=== PATIENT | female | born 1940 | race Caucasian/White ===

== ENCOUNTER 2018-02-26 22:41 | Emergency (ER) | payer BC, MEDICARE ==
[2018-02-26 23:39] LABS: #Basophils 0.1 thou/uL (0.0-0.2); #Eosinphils 0.2 thou/uL (0.0-0.7); #Lymphocytes 1.7 thou/uL (1.20-3.40); #Monocytes 0.7 thou/uL (0.11-0.59); #Neutrophils 3.9 thou/uL (1.40-6.50); %Basophils 1.2 % (0.0-1.0); %Eosinophils 3.7 % (0.0-10.0); %Lymphocytes 25.9 % (21.0-51.0); %Monocytes 10.9 % (0.0-10.0); %Neutrophils 58.3 % (42.0-75.0); Hemoglobin 13.2 g/dL (12.0-16.0); Mean Corpuscular HGB CONC 32.7 g/dL (32.0-36.0); Mean Corpuscular Hemoglobin 31.3 pg (27.0-31.0); Mean Corpuscular Volume 95.5 fL (78.0-98.0); Mean Platelet Volume 7.6 fL (7.4-10.4); Platelet Count 235 thou/uL (130-400); Red Blood Cell (RBC) Count 4.21 mill/uL (4.20-5.40); White Blood Cell (WBC) Count 6.7 thou/uL (4.8-10.8)
[2018-02-26 23:51] LABS: ALT (SGPT) Less than 7 U/L (8-55); AST (SGOT) 19 U/L (5-34); Acetaminophen Less than 6.0 mcg/mL (10.0-30.0); Albumin 4.2 g/dL (3.4-4.8); Alcohol Less than 10 mg/dL (Less than 10); Alkaline Phosphatase 49 U/L (40-150); Anion Gap 13 mmol/L (10-20); BUN (Urea Nitrogen) 19 mg/dL (9.8-20.1); Bilirubin, Total 0.3 mg/dL (0.2-1.2); CK (CPK) 55 U/L (29-168); Calc. Creatinine Clearance 0 mL/min (70-130); Calcium 9.2 mg/dL (7.8-10.44); Carbon Dioxide 25 mmol/L (23-31); Chloride 105 mmol/L (98-107); Estimated GFR-MDRD Greater than 90; Globulin 2.5 g/dL (2.4-3.5); Glucose 107 mg/dL (83-110); Potassium 4.3 mmol/L (3.5-5.1); Protein, Total 6.7 g/dL (6.0-8.3); Salicylate Less than 8.0 mg/dL (15.0-30.0); Sodium 139 mmol/L (136-145)
[2018-02-26 23:53] LABS: Troponin I Less than 0.010 ng/mL (< 0.028)
--- NOTE | 2018-02-27 00:06 | CT ---
CT BRAIN WITHOUT CONTRAST: HISTORY: The patient was found on the floor. Lethargy. TECHNIQUE: Noncontrast enhanced CT images of the brain obtained. FINDINGS: No evidence of acute intracranial masses, hemorrhages, strokes, or contusions seen. IMPRESSION: Normal CT brain. POS: [facility]
[2018-02-27 02:33] LABS: Bilirubin Negative (Negative); Blood, Urine Negative (Negative); Glucose, Urine (Dipstick) 100 mg/dL (Negative); Leukocyte Negative (Negative); Nitrite Negative (Negative); Protein, Urine (Dipstick) Negative (Neg-Trace); pH, Urine 6.5 (5.0-9.0)
[2018-02-27 02:44] LABS: Amphetamine Detected (NotDetected); Cocaine Metabolite Screen Not Detected (NotDetected); Medtox Reader # READER 4; Methamphetamine Not Detected (NotDetected); Opiate Screen Not Detected (NotDetected); Phencyclidine (PCP) Not Detected (NotDetected); THC/Cannabinoid Screen Not Detected (NotDetected)
[2018-02-27 02:45] LABS: Barbiturates Screen Not Detected (NotDetected); Benzodiazepine Screen Not Detected (NotDetected); Medtox Control Line Valid? VALID (VALID); Methadone Not Detected (NotDetected); Oxycodone Screen Not Detected (NotDetected); Tricyclic Screen Detected (NotDetected)
[2018-02-27 02:47] LABS: Clarity Clear (Clear)
--- NOTE | 2018-02-27 08:59 | RAD ---
PORTABLE AP CHEST X-RAY: 02/27/2018 HISTORY: Fall. Patient found on floor. Favoring right arm. The patient is lethargic. COMPARISON: 08/17/2016 FINDINGS: Bilateral [place] rods and multiple pedicular screws are seen transfixing the thoracic, as well as the limited visualized upper lumbar spine, stable from prior study. A linear area of scarring is aga in seen at the left mid lung zone. The patient is rotated, which exaggerates the cardiac silhouette and bronchovascular markings, but the lungs are otherwise clear. There is osteopenia. No other inte rval change is noted. IMPRESSION: 1. No acute cardiopulmonary process. 2. Stable scarring, left mid lung zone. POS: [facility]
--- NOTE | 2018-02-27 12:01 | CT ---
PRELIMINARY REPORT/[facility]/EMERGENCY AFTER HOURS PROCEDURE: EXAM: CT Cervical Spine Without Intravenous Contrast CLINICAL HISTORY: 78 years old, female; Injury or trauma; Fall; Initial encounter; Abrasion; Patient HX: Fall. TECHNIQUE: Axial computed tomography images of the cervical spine without intravenous contrast. COMPARISON: No relevant prior studies available. FINDINGS: Vertebrae: No acute fracture. Discs/spinal canal/neural foramina: Mild multilevel degenerative disc disease, manifest by disc space narrowing minimal osteophyte formation. Mild multilevel bilateral facet and uncovertebral arthropathy . Degenerative changes of the atlantoaxial articulation. Right C3-4, right C4-5, and bilateral C5-6 shayy ral foraminal narrowing. Soft tissues: Normal. Vasculature: Atherosclerotic vascular calcifications. Trachea: Evidence of tracheomalacia. Lung apices: Normal as visualized. IMPRESSION: 1. No acute findings. 2. Non-acute findings are described above. Thank you for allowing us to participate in the care of your patient. Dictated and Authenticated by: Manuelito Alexander MD 02/27/2018 12:56 AM Central Time ([place] & [place]) EMERGENT AFTER HOURS CT CERVICAL SPINE PERFORMED WITHOUT CONTRAST ENHANCEMENT: HISTORY: The patient is status post fall with neck pain. FINDINGS: The vertebral bodies are normal in height. There is degenerative disk narrowing at C5-C6 and C6-C7. Somewhat prominent posterior osteophytic change is seen at C5-C6. There are marked degenerative fac et changes along the course of the cervical spine. There are postoperative changes of the thoracic s pine. This artifact considerably degrades detail in the lower cervical spine/upper thoracic region. At the C3-C4 level, there is some right-sided foraminal narrowing, related to facet and uncovertebra l changes, and also at C4-C5. At C5-C6, there is mild canal stenosis and bilateral foraminal narrowi ng. There is no CT evidence for fracture. IMPRESSION: No CT evidence of fracture of the cervical spine. This report is in agreement with the temporary report issued by [facility]. Of incidental note are severe tracheomalacia changes of the visualized lower portion of the trachea w ith marked narrowing to the AP dimension of the trachea. POS: [facility]
== END 2018-02-27 03:35 | disposition home or self-care (01) ==
LOC: ERS 22:41
DX: R53.83 Other fatigue (principal); E78.5 Hyperlipidemia, unspecified; I10 Essential (primary) hypertension; F03.90 Unspecified dementia, unspecified severity, without behavioral disturbance, psychotic disturbance, mood disturbance, and anxiety; G20 Parkinson's disease; F32.9 Major depressive disorder, single episode, unspecified; Z79.899 Other long term (current) drug therapy; W19.XXXA Unspecified fall, initial encounter
CPT/HCPCS: 51701; 70450; 71045; 72125; 80053; 80306; 80307; 81003; 82553; 83880; 84443; 84484; 85025; 93005; A4353

== ENCOUNTER 2018-06-21 17:23 | Emergency (ER) | payer MEDICARE, BC ==
[2018-06-21] MEDS ORDERED: Adacel (T-DAP) 0.5 ML SYRINGE ONE (19:16)
--- NOTE | 2018-06-21 19:55 | CT ---
CT BRAIN 06/21/18 PROVIDED CLINICAL HISTORY: Head injury. FINDINGS: Comparison 02/26/18. The ventricular system appears normal in size and morphology. There is no evidence for intracranial h emorrhage or mass effect. The extracranial soft tissues and osseous structures demonstrate no acute a bnormality. IMPRESSION: No evidence for intracranial hemorrhage or mass effect. POS: [facility]
== END 2018-06-21 19:30 | disposition home or self-care (01) ==
LOC: ERS 17:23
DX: S01.01XA Laceration without foreign body of scalp, initial encounter (principal); E78.5 Hyperlipidemia, unspecified; F03.90 Unspecified dementia, unspecified severity, without behavioral disturbance, psychotic disturbance, mood disturbance, and anxiety; I10 Essential (primary) hypertension; G20 Parkinson's disease; M19.90 Unspecified osteoarthritis, unspecified site; F32.9 Major depressive disorder, single episode, unspecified; Z79.899 Other long term (current) drug therapy; W05.0XXA Fall from non-moving wheelchair, initial encounter
CPT/HCPCS: 12001; 70450; 90715

== ENCOUNTER 2018-10-23 14:29 | Outpatient (CLI) | payer MEDICARE, BC ==
--- NOTE | 2018-10-23 15:40 | RAD ---
CHEST PA AND LATERAL: HISTORY: Chest congestion. History of frequent pneumonia. COMPARISON: 08/17/2016 FINDINGS: Extensive rods and screws stabilize the thoracic spine. Linear parenchymal changes are noted in the left mid lung zone with some blunting at the left costophrenic angle, stable. No confluent pneumonia or overt edema. IMPRESSION: Stable chronic lung changes, particularly in the left chest. No pneumonia or other acute process. POS: [facility]
== END 2018-10-23 14:30 | disposition home or self-care (01) ==
LOC: BICRAD 14:29
PROVIDERS: ATTEND Family Medicine
DX: R09.89 Other specified symptoms and signs involving the circulatory and respiratory systems (principal); J98.4 Other disorders of lung
CPT/HCPCS: 36415; 71046; 80053; 84443; 85025

== ENCOUNTER 2018-11-11 21:33 | Emergency (ER) | payer BC, MEDICARE ==
--- NOTE | 2018-11-11 22:58 | RAD ---
EXAM: Single view of the chest HISTORY: Cough COMPARISON: 02/27/2018 FINDINGS: Single view of the chest shows a normal sized cardiomediastinal silhouette. There is no danny dence of consolidation, mass, or pleural effusion. Extensive hardware is seen in the spine. IMPRESSION: No evidence of acute cardiopulmonary disease
[2018-11-11 23:26] LABS: Bilirubin Negative (Negative); Blood, Urine Negative (Negative); Clarity CLEAR (Clear); Glucose, Urine (Dipstick) Negative (Negative); Leukocyte Negative (Negative); Nitrite Negative (Negative); Protein, Urine (Dipstick) Negative (Neg-Trace); Specific Gravity, Urine 1.007 (1.002-1.036); Urobilinogen 0.2 mg/dL (0.2-1.0)
== END 2018-11-11 23:48 ==
LOC: ERS 21:33
DX: R05 Cough (principal); E78.5 Hyperlipidemia, unspecified; F03.90 Unspecified dementia, unspecified severity, without behavioral disturbance, psychotic disturbance, mood disturbance, and anxiety; G20 Parkinson's disease; F32.9 Major depressive disorder, single episode, unspecified; Z87.01 Personal history of pneumonia (recurrent); I10 Essential (primary) hypertension; Z79.899 Other long term (current) drug therapy; Z79.01 Long term (current) use of anticoagulants
CPT/HCPCS: 51701; 71045; 81003; 87086; A4353

== ENCOUNTER 2019-05-06 00:53 | Emergency (ER) | payer BC, MEDICARE ==
[2019-05-06 02:01] LABS: ALT (SGPT) 10 U/L (8-55); AST (SGOT) 40 U/L (5-34); Albumin 3.7 g/dL (3.4-4.8); Alkaline Phosphatase 48 U/L (40-110); Anion Gap 10 mmol/L (10-20); BUN (Urea Nitrogen) 24 mg/dL (9.8-20.1); Bilirubin, Total 0.5 mg/dL (0.2-1.2); Calc. Creatinine Clearance 0 mL/min (70-130); Calcium 8.3 mg/dL (7.8-10.44); Carbon Dioxide 26 mmol/L (23-31); Chloride 109 mmol/L (98-107); Estimated GFR-MDRD Greater than 90; Glucose 92 mg/dL (83-110); Magnesium 1.9 mg/dL (1.6-2.6); Protein, Total 5.7 g/dL (6.0-8.3); Sodium 141 mmol/L (136-145)
[2019-05-06 02:59] LABS: Bacteria/HPF None Seen HPF (None Seen); Bilirubin Negative (Negative); Blood, Urine Negative (Negative); Clarity Clear (Clear); Glucose, Urine (Dipstick) Normal (Negative); Leukocyte 25 Leu/uL (Negative); Nitrite Negative (Negative); Protein, Urine (Dipstick) 10 mg/dL (Neg-Trace); RBC/HPF 0-3 HPF (0-3); Squamous Epithelial 0-3 HPF (0-3); Urobilinogen Normal mg/dL (Less than 2)
[2019-05-06 03:22] LABS: #Basophils 0.1 thou/uL (0.0-0.2); #Eosinphils 0.4 thou/uL (0.0-0.7); #Lymphocytes 2.8 thou/uL (1.20-3.40); #Monocytes 0.9 thou/uL (0.11-0.59); #Neutrophils 4.6 thou/uL (1.40-6.50); %Basophils 0.7 % (0.0-1.0); %Eosinophils 4.3 % (0.0-10.0); %Lymphocytes 32.1 % (21.0-51.0); %Monocytes 10.3 % (0.0-10.0); %Neutrophils 52.7 % (42.0-75.0); Hemoglobin 11.6 g/dL (12.0-16.0); Mean Corpuscular HGB CONC 33.4 g/dL (32.0-36.0); Mean Corpuscular Hemoglobin 31.5 pg (27.0-31.0); Mean Corpuscular Volume 94.2 fL (78.0-98.0); Mean Platelet Volume 7.1 fL (7.4-10.4); Platelet Count 206 thou/uL (130-400); Red Blood Cell (RBC) Count 3.68 mill/uL (4.20-5.40); White Blood Cell (WBC) Count 8.8 thou/uL (4.8-10.8)
[2019-05-06] MEDS ORDERED: cefTRIAXone\\ROCEPHIN 1 GM VIAL ONE (03:45)
--- NOTE | 2019-05-06 09:18 | RAD ---
RADIOGRAPH CHEST 1 VIEW: DATE: 05/06/19 HISTORY: 79-year-old female with dyspnea. FINDINGS: There are no air space densities, pulmonary edema, pneumothorax, or cardiomegaly. The lateral costop hrenic angles are sharp. There is spinal hardware throughout. IMPRESSION: 1. No acute cardiopulmonary findings. 2. Pedicle screws and vertical interlocking rods throughout the thoracic spine and at least upper erick mbar spine. jn [] POS: [facility]
== END 2019-05-06 04:45 ==
LOC: ERS 00:53
DX: N39.0 Urinary tract infection, site not specified (principal); E86.0 Dehydration; E78.5 Hyperlipidemia, unspecified; I10 Essential (primary) hypertension; F03.90 Unspecified dementia, unspecified severity, without behavioral disturbance, psychotic disturbance, mood disturbance, and anxiety; M17.0 Bilateral primary osteoarthritis of knee; Z79.899 Other long term (current) drug therapy
CPT/HCPCS: 36415; 51701; 71045; 80053; 81003; 81015; 83735; 84484; 85025; 93005; 96374; J0696

== ENCOUNTER 2019-09-07 21:49 | Emergency (ER) | payer MEDICARE, BC ==
--- NOTE | 2019-09-07 22:44 | RAD ---
XR Hip Lt 2-3 View History: Fall. Pain Comparison: None. Findings: Spinal fusion hardware lumbosacral spine with discectomy change and bone graft. Left obtura tor ring appears be intact. There is abnormal marrow stimulation the intertrochanteric portion of the left femur which may be seq uelae of a healed fracture as there is no cortical offset on the lateral radiograph. Severe degenerative disease of the left hip with large subcortical cysts and osteophyte formation. Impression: 1. Findings of an old intertrochanteric fracture left femur as there is no cortical offset on the lat eral radiograph to suggest acuity. This appears healed with abnormal varus angulation. 2. Intact obturator rings without displaced fracture. 3. High-grade degenerative disease of the left hip. 4. If the patient is acutely unable to bear weight, CT may be beneficial to evaluate for nondisplaced fracture.
--- NOTE | 2019-09-07 22:46 | CT ---
CT Brain WO Con History: Fall. Trauma Comparison: CT brain June 2018 Findings: No acute hemorrhage or infarct. No midline shift or mass effect. Age-appropriate volume. No hydrocephalus. Old right lacunar infarct. Paranasal sinuses and mastoids are clear. The calvarium is intact. Small right forehead soft tissue c ontusion. Impression: No acute posttraumatic intracranial sequela.
== END 2019-09-08 00:31 ==
LOC: ERS 21:49
DX: S00.03XA Contusion of scalp, initial encounter (principal); S70.02XA Contusion of left hip, initial encounter; E78.5 Hyperlipidemia, unspecified; I10 Essential (primary) hypertension; F03.90 Unspecified dementia, unspecified severity, without behavioral disturbance, psychotic disturbance, mood disturbance, and anxiety; G20 Parkinson's disease; F32.9 Major depressive disorder, single episode, unspecified; W19.XXXA Unspecified fall, initial encounter
CPT/HCPCS: 70450

== ENCOUNTER 2020-02-29 22:04 | Emergency (ER) | payer MEDICARE, BC ==
--- NOTE | 2020-02-29 22:48 | CT ---
CT Brain WO Con History: Trauma Comparison: CT August 2019 Findings: Mild motion artifact. Moderate chronic microvascular ischemic changes. No acute hemorrhage or territorial infarction. Calvarium is intact. Paranasal sinuses and mastoids are relatively clear. Impression: No acute intracranial abnormality.
== END 2020-02-29 23:32 ==
LOC: ERS 22:04
DX: F03.90 Unspecified dementia, unspecified severity, without behavioral disturbance, psychotic disturbance, mood disturbance, and anxiety (principal); E78.2 Mixed hyperlipidemia; I10 Essential (primary) hypertension; M19.90 Unspecified osteoarthritis, unspecified site; G20 Parkinson's disease; F32.9 Major depressive disorder, single episode, unspecified; Z79.899 Other long term (current) drug therapy; W01.198A Fall on same level from slipping, tripping and stumbling with subsequent striking against other object, initial encounter
CPT/HCPCS: 70450

== ENCOUNTER 2020-05-16 18:37 | Emergency (ER) | payer MEDICARE, BC ==
[2020-05-16] MEDS ORDERED: Boostrix 0.5 ML (Tdap) VIAL ONE (19:20)
--- NOTE | 2020-05-16 19:32 | RAD ---
Exam:Right hand 3 views HISTORY: Pain. Injury. Fall. COMPARISON: None FINDINGS: Diffuse bone demineralization. Chronic changes involving the first carpometacarpal articula tion as well as the articulation of the scaphoid bone and trapezium. No acute fractures with regards to the right hand. There is demineralization involving the distal radius. There are degenerative changes involving the s econd through fifth distal interphalangeal joint spaces. IMPRESSION: Chronic changes. No fracture. If there is pain or point tenderness, immobilization and fo llow-up imaging in 7-10 days.
--- NOTE | 2020-05-16 20:05 | CT ---
EXAM: BRAIN CT WITHOUT IV CONTRAST: 05/16/20 HISTORY: AMS There is minimal motion artifact. No focal mass or midline shift. No intra or extra-axial hemorrhage. IMPRESSION: No significant acute intracranial process. No mass or bleed. Minimal motion artifact. POS: [facility]
--- NOTE | 2020-05-16 20:17 | CT ---
Exam: CT cervical spine without contrast HISTORY: Patient fell out of the wheelchair. COMPARISON: 02/27/2018 FINDINGS: No craniocervical dissociation. Appropriate alignment of the lateral masses of C1 and C2. Intact odon toid process Appropriate alignment of the facets. Redemonstration of multilevel facet arthropathy. There are hypertrophic changes with vacuum joint phe nomenon. Incompletely evaluated posterior element hardware in the upper thoracic spine. Soft tissue neck structures: No mass, lymphadenopathy or hematoma. No prevertebral soft tissue swelli ng. Upper mediastinum and lung apices: Unremarkable Central spinal canal: Neural foramina and central spinal canal are patent. Evaluation is limited by t echnique Vertebral bodies: Cervical spine vertebral body height is maintained. No fracture. IMPRESSION: 1. No fracture.
[2020-05-16] MEDS ORDERED: Bacitracin 1 PK ONE (23:20)
== END 2020-05-17 00:08 ==
LOC: ERS 18:37
DX: S61.411A Laceration without foreign body of right hand, initial encounter (principal); S00.83XA Contusion of other part of head, initial encounter; I10 Essential (primary) hypertension; G20 Parkinson's disease; F02.80 Dementia in other diseases classified elsewhere, unspecified severity, without behavioral disturbance, psychotic disturbance, mood disturbance, and anxiety; E78.2 Mixed hyperlipidemia; M17.0 Bilateral primary osteoarthritis of knee; Z87.01 Personal history of pneumonia (recurrent); Z79.899 Other long term (current) drug therapy; W05.0XXA Fall from non-moving wheelchair, initial encounter
CPT/HCPCS: 12005; 70450; 72125; 90471; 90715

== ENCOUNTER 2020-06-01 20:53 | Emergency (ER) | payer MEDICARE, BC ==
--- NOTE | 2020-06-01 22:09 | RAD ---
EXAM: Single view of the chest HISTORY: Fall with chest trauma COMPARISON: 05/06/2019 FINDINGS: Single view of the chest shows a normal sized cardiomediastinal silhouette. There is no danny dence of consolidation, mass, or pleural effusion. Extensive hardware is seen in the spine. IMPRESSION: No evidence of acute cardiopulmonary disease
--- NOTE | 2020-06-01 22:11 | CT ---
EXAM: CT of the cervical spine without contrast HISTORY: Fall with neck pain COMPARISON: 05/16/2020 TECHNIQUE: Multiple contiguous axial images were obtained in a CT of the cervical spine without contr ast. Sagittal and coronal reformats were performed. FINDINGS: The vertebral bodies demonstrate normal height and alignment without fracture or subluxatio n. Moderate degenerative changes are seen throughout the cervical spine with intervertebral disc space narrowing and osteophyte formation. Posterior facet arthrosis is also seen. No prevertebral so ft tissue swelling is seen. The posterior facets are well aligned. Normal alignment of the skull base with the cervical spine is seen. Hardware is seen in the thoracic spine. The lung apices and cervical soft tissues are unremarkable. IMPRESSION: No evidence of acute osseous abnormality of the cervical spine.
--- NOTE | 2020-06-01 22:38 | CT ---
EXAM: CT brain without contrast HISTORY: Fell in the abdomen with head trauma COMPARISON: 05/16/2020 TECHNIQUE: Multiple contiguous axial images were obtained and a CT of the brain without contrast. FINDINGS: There are scattered hypodensities in the subcortical and periventricular white matter consi stent with small vessel ischemic disease. There is no evidence of hydrocephalus, intracranial hemorrhage, or extra-axial fluid collection. There is soft tissue swelling in the left frontal scalp. The underlying calvarium is unremarkable.. T he visualized paranasal sinuses and mastoid air cells are well aerated. IMPRESSION: No evidence of acute intracranial abnormality
--- NOTE | 2020-06-01 22:40 | CT ---
EXAM: CT face without contrast HISTORY: Fall while eating dinner with facial trauma and swelling COMPARISON: None TECHNIQUE: Multiple contiguous axial images were obtained and a CT of the face without contrast. Sagi ttal and coronal reformats were performed. FINDINGS: No facial fractures are identified. Left forehead/frontal scalp soft tissue swelling is se en. The globes and retrobulbar soft tissues are unremarkable. The visualized paranasal sinuses are well aerated without evidence of opacification. The mastoid air cells are well aerated. Visualized intracranial structures are unremarkable. IMPRESSION: No evidence of facial fracture
[2020-06-01 22:44] LABS: #Basophils 0.1 thou/uL (0.0-0.2); #Eosinphils 0.1 thou/uL (0.0-0.7); #Lymphocytes 1.3 thou/uL (1.20-3.40); #Monocytes 0.8 thou/uL (0.11-0.59); #Neutrophils 7.8 thou/uL (1.40-6.50); %Basophils 0.5 % (0.0-1.0); %Eosinophils 1.1 % (0.0-10.0); %Lymphocytes 13.3 % (21.0-51.0); %Monocytes 7.9 % (0.0-10.0); %Neutrophils 77.1 % (42.0-75.0); Hemoglobin 12.3 g/dL (12.0-16.0); Mean Corpuscular HGB CONC 33.7 g/dL (32.0-36.0); Mean Corpuscular Volume 94.9 fL (78.0-98.0); Mean Platelet Volume 6.9 fL (7.4-10.4); Platelet Count 225 thou/uL (130-400); RBC Distribution Width 11.1 % (11.5-14.5); Red Blood Cell (RBC) Count 3.85 mill/uL (4.20-5.40); White Blood Cell (WBC) Count 10.1 thou/uL (4.8-10.8)
[2020-06-01 22:52] LABS: Prothrombin Time 13.2 sec (12.0-14.7)
[2020-06-01 23:03] LABS: Bilirubin Negative (Negative); Blood, Urine Negative (Negative); Clarity Clear (Clear); Glucose, Urine (Dipstick) Normal (Negative); Ketone, Urine Negative (Negative); Leukocyte Negative Leu/uL (Negative); Nitrite Negative (Negative); Protein, Urine (Dipstick) 10 mg/dL (Neg-Trace); Specific Gravity, Urine 1.022 (1.002-1.036); Urobilinogen Normal mg/dL (Less than 2); pH, Urine 6.5 (5.0-9.0)
[2020-06-01 23:06] LABS: ALT (SGPT) Less than 7 U/L (8-55); AST (SGOT) 14 U/L (5-34); Alkaline Phosphatase 53 U/L (40-110); Anion Gap 14 mmol/L (10-20); BUN (Urea Nitrogen) 24 mg/dL (9.8-20.1); Bilirubin, Total 0.4 mg/dL (0.2-1.2); Calc. Creatinine Clearance 0 mL/min (70-130); Calcium 8.6 mg/dL (7.8-10.44); Carbon Dioxide 29 mmol/L (23-31); Chloride 102 mmol/L (98-107); Globulin 2.4 g/dL (2.4-3.5); Glucose 104 mg/dL (83-110); Potassium 4.9 mmol/L (3.5-5.1); Protein, Total 6.4 g/dL (6.0-8.3); Sodium 140 mmol/L (136-145)
== END 2020-06-02 00:22 ==
LOC: ERS 20:53
DX: S61.411A Laceration without foreign body of right hand, initial encounter (principal); S00.83XA Contusion of other part of head, initial encounter; S00.11XA Contusion of right eyelid and periocular area, initial encounter; W05.0XXA Fall from non-moving wheelchair, initial encounter; Z79.899 Other long term (current) drug therapy; E78.5 Hyperlipidemia, unspecified; I10 Essential (primary) hypertension; F03.90 Unspecified dementia, unspecified severity, without behavioral disturbance, psychotic disturbance, mood disturbance, and anxiety; G20 Parkinson's disease; M17.0 Bilateral primary osteoarthritis of knee
CPT/HCPCS: 36415; 51701; 70450; 70486; 71045; 72125; 80053; 81003; 84484; 85025; 85610; 93005

== ENCOUNTER 2020-08-08 23:03 | Emergency (ER) | payer MEDICARE, BC ==
[2020-08-09 00:17] LABS: #Eosinphils 0.2 thou/uL (0.0-0.7); #Lymphocytes 1.9 thou/uL (1.20-3.40); #Monocytes 1.7 thou/uL (0.11-0.59); #Neutrophils 10.3 thou/uL (1.40-6.50); %Basophils 0.3 % (0.0-1.0); %Eosinophils 1.3 % (0.0-10.0); %Lymphocytes 13.4 % (21.0-51.0); %Monocytes 11.9 % (0.0-10.0); %Neutrophils 73.1 % (42.0-75.0); Hemoglobin 11.3 g/dL (12.0-16.0); Mean Corpuscular HGB CONC 33.1 g/dL (32.0-36.0); Mean Corpuscular Hemoglobin 31.4 pg (27.0-31.0); Mean Corpuscular Volume 94.7 fL (78.0-98.0); Platelet Count 251 thou/uL (130-400); RBC Distribution Width 10.9 % (11.5-14.5); Red Blood Cell (RBC) Count 3.59 mill/uL (4.20-5.40); White Blood Cell (WBC) Count 14.1 thou/uL (4.8-10.8)
[2020-08-09 00:47] LABS: ALT (SGPT) Less than 7 U/L (8-55); AST (SGOT) 11 U/L (5-34); Albumin 3.5 g/dL (3.4-4.8); Alkaline Phosphatase 72 U/L (40-110); Anion Gap 10 mmol/L (10-20); BUN (Urea Nitrogen) 20 mg/dL (9.8-20.1); Bilirubin, Total 0.5 mg/dL (0.2-1.2); Calc. Creatinine Clearance 0 mL/min (70-130); Calcium 8.6 mg/dL (7.8-10.44); Carbon Dioxide 28 mmol/L (23-31); Chloride 102 mmol/L (98-107); Globulin 2.8 g/dL (2.4-3.5); Glucose 115 mg/dL (83-110); Potassium 4.2 mmol/L (3.5-5.1); Protein, Total 6.3 g/dL (5.8-8.1); Sodium 136 mmol/L (136-145)
[2020-08-09 01:28] LABS: Bacteria/HPF 4+ HPF (None Seen); Bilirubin Negative (Negative); Blood, Urine Negative (Negative); Clarity Clear (Clear); Glucose, Urine (Dipstick) Normal (Negative); Ketone, Urine Negative (Negative); Leukocyte 250 Leu/uL (Negative); Nitrite 1+ (Negative); Protein, Urine (Dipstick) 20 mg/dL (Neg-Trace); RBC/HPF 0-3 HPF (0-3); Specific Gravity, Urine 1.026 (1.002-1.036); Squamous Epithelial 0-3 HPF (0-3); Urobilinogen Normal mg/dL (Less than 2); pH, Urine 5.5 (5.0-9.0)
[2020-08-09] MEDS ORDERED: cefTRIAXone\\ROCEPHIN 1 GM VIAL ONE (01:45)
[2020-08-09] MEDS ORDERED: Nitrofurantoin Macrocrystal 50 MG CAP PO SCH (02:00)
[2020-08-09 08:46] LABS: SARS-CoV-2 PCR by NAA Not Detected (NotDetected)
== END 2020-08-09 02:43 | disposition home or self-care (01) ==
LOC: ERS 23:03
DX: N39.0 Urinary tract infection, site not specified (principal); E86.0 Dehydration; G30.9 Alzheimer's disease, unspecified; F02.80 Dementia in other diseases classified elsewhere, unspecified severity, without behavioral disturbance, psychotic disturbance, mood disturbance, and anxiety; Z20.822 Contact with and (suspected) exposure to COVID-19; E78.2 Mixed hyperlipidemia; I10 Essential (primary) hypertension; M17.0 Bilateral primary osteoarthritis of knee; G20 Parkinson's disease
CPT/HCPCS: 51701; 80053; 83605; 85025; 87077; 87086; 87186; 93005; 94760; 96365; 99284; U0003; U0005; 36415; 81003; 81015; 87635; J0696

== ENCOUNTER 2020-08-17 18:38 | Inpatient (IN) | payer MEDICARE, BC ==
[~2020-08-17 18:38] MED LIST: Iopamidol-370 76% 500 ML 1 ML ONE
[2020-08-17 19:05] LABS: #Basophils 0.1 thou/uL (0.0-0.2); #Eosinphils 0.3 thou/uL (0.0-0.7); #Lymphocytes 2.3 thou/uL (1.20-3.40); #Monocytes 0.8 thou/uL (0.11-0.59); #Neutrophils 6.1 thou/uL (1.40-6.50); %Basophils 0.7 % (0.0-1.0); %Eosinophils 2.9 % (0.0-10.0); %Lymphocytes 24.2 % (21.0-51.0); %Monocytes 8.2 % (0.0-10.0); Hemoglobin 11.5 g/dL (12.0-16.0); Mean Corpuscular HGB CONC 32.8 g/dL (32.0-36.0); Mean Corpuscular Hemoglobin 31.2 pg (27.0-31.0); Mean Corpuscular Volume 95.2 fL (78.0-98.0); Mean Platelet Volume 6.1 fL (7.4-10.4); Platelet Count 327 thou/uL (130-400); Red Blood Cell (RBC) Count 3.67 mill/uL (4.20-5.40); White Blood Cell (WBC) Count 9.5 thou/uL (4.8-10.8)
[2020-08-17 19:11] LABS: PTT 24.2 sec (22.9-36.1); Prothrombin Time 13.3 sec (12.0-14.7)
[2020-08-17 19:21] LABS: ALT (SGPT) Less than 7 U/L (8-55); AST (SGOT) 14 U/L (5-34); Albumin 3.4 g/dL (3.4-4.8); Alkaline Phosphatase 56 U/L (40-110); Anion Gap 15 mmol/L (10-20); BUN (Urea Nitrogen) 23 mg/dL (9.8-20.1); Bilirubin, Total 0.2 mg/dL (0.2-1.2); CK (CPK) 36 U/L (29-168); Calc. Creatinine Clearance 0 mL/min (70-130); Calcium 8.5 mg/dL (7.8-10.44); Carbon Dioxide 24 mmol/L (23-31); Chloride 100 mmol/L (98-107); Globulin 2.7 g/dL (2.4-3.5); Glucose 109 mg/dL (83-110); Potassium 4.1 mmol/L (3.5-5.1); Protein, Total 6.1 g/dL (5.8-8.1); Sodium 135 mmol/L (136-145)
[2020-08-17 19:39] LABS: Bilirubin Negative (Negative); Blood, Urine Negative (Negative); Clarity Turbid (Clear); Glucose, Urine (Dipstick) Normal (Negative); Ketone, Urine Negative (Negative); Leukocyte Negative Leu/uL (Negative); Nitrite Negative (Negative); Protein, Urine (Dipstick) 10 mg/dL (Neg-Trace); Specific Gravity, Urine 1.026 (1.002-1.036); Urobilinogen Normal mg/dL (Less than 2); pH, Urine 7.5 (5.0-9.0)
[2020-08-17] MEDS ORDERED: Aspirin Chewable 81 MG TAB ONE (19:46)
[2020-08-17] MEDS ORDERED: hydrALAZINE 20 MG/ML VIAL SLOW IVP PRN (21:18)
[2020-08-17] MEDS ORDERED: Ondansetron PF 4 MG/2 ML Vial IVP PRN (22:08)
[2020-08-17] MEDS ORDERED: Acetaminophen 325 MG TAB PO PRN (22:08)
[2020-08-18 01:25] VITALS: BMI 17.5
[2020-08-18 07:43] LABS: #Basophils 0.1 thou/uL (0.0-0.2); #Eosinphils 0.4 thou/uL (0.0-0.7); #Lymphocytes 1.8 thou/uL (1.20-3.40); #Monocytes 0.7 thou/uL (0.11-0.59); #Neutrophils 5.6 thou/uL (1.40-6.50); %Basophils 0.9 % (0.0-1.0); %Eosinophils 4.6 % (0.0-10.0); %Lymphocytes 21.2 % (21.0-51.0); %Monocytes 8.4 % (0.0-10.0); %Neutrophils 64.9 % (42.0-75.0); Hemoglobin 12.7 g/dL (12.0-16.0); Mean Corpuscular HGB CONC 32.6 g/dL (32.0-36.0); Mean Platelet Volume 6.3 fL (7.4-10.4); Platelet Count 377 thou/uL (130-400); RBC Distribution Width 11.1 % (11.5-14.5); White Blood Cell (WBC) Count 8.7 thou/uL (4.8-10.8)
[2020-08-18] MEDS ORDERED: Acetaminophen 500 MG TAB PO PRN (08:13)
[2020-08-18] MEDS ORDERED: Docusate 100 MG CAP PO PRN (08:13)
[2020-08-18] MEDS ORDERED: guaiFENesin ER 600 MG TAB PO PRN (08:13)
[2020-08-18] MEDS ORDERED: Polyethylene Glycol 3350 17 GM Packet PO PRN (08:13)
[2020-08-18] MEDS ORDERED: Dextromethorphan Polistirex 30 MG/5 ML (89 ML BOTTLE) PO PRN (08:13)
[2020-08-18] MEDS ORDERED: Guaifenesin DM 100-10/5 ML UDCUP PO PRN (08:13)
[2020-08-18] MEDS ORDERED: Metoprolol Tartrate 5 MG/5 ML VIAL IVP SCH (08:15)
[2020-08-18] MEDS ORDERED: hydrALAZINE 20 MG/ML VIAL SLOW IVP PRN (08:16)
[2020-08-18] MEDS ORDERED: CARBIDOPA PO SCH ×2 (09:00)
[2020-08-18] MEDS ORDERED: PIMAVANSERIN TARTRATE 34 MG PO SCH ×2 (09:00)
[2020-08-18] MEDS ORDERED: FOLIC ACID PO SCH (09:00)
[2020-08-18] MEDS ORDERED: Non-Formulary Item 1 EACH (Fluticasone Propionate [Flonase Allergy Relief] 9.9 ML Bottle) EA NARE SCH (09:00)
[2020-08-18] MEDS ORDERED: IRON PO SCH (09:00)
[2020-08-18] MEDS ORDERED: PRENATAL PO SCH (09:00)
[2020-08-18] MEDS ORDERED: LEVODOPA PO SCH ×2 (09:00)
[2020-08-18] MEDS ORDERED: PRAMIPEXOLE DI HCL 1.5 MG PO SCH (09:00)
[2020-08-18] MEDS ORDERED: ENTACAPONE PO SCH ×2 (09:00)
[2020-08-18] MEDS: Prenatal Vitamin 1 TAB PO SCH (10:22)
[2020-08-18] MEDS: Escitalopram Oxalate 20 mg Tablet PO SCH (10:22)
[2020-08-18] MEDS: Trospium 20 MG TAB PO SCH ×2 (10:23→21:30)
[2020-08-18] MEDS: Aspirin 81 mg Enteric Coated Tablet PO SCH (10:23)
[2020-08-18] MEDS: Pramipexole Di-HCl 0.25 MG TAB PO SCH ×3 (10:23→21:30)
[2020-08-18] MEDS: Fluticasone Propionate Nasal Spray 16 gm Bottle NASAL SCH (10:40)
[2020-08-18 11:39] LABS: SARS-CoV-2 PCR by NAA Not Detected (NotDetected)
[2020-08-18] MEDS ORDERED: Non-Formulary Item 1 EACH (Quetiapine Fumarate [Seroquel] 50 MG Tablet) PO SCH (21:00)
[2020-08-18 21:36] LABS: Calcium 9.3 mg/dL (7.8-10.44); Chloride 103 mmol/L (98-107); Potassium 4.8 mmol/L (3.5-5.1); Sodium 139 mmol/L (136-145)
[2020-08-18 21:37] LABS: Glucose 82 mg/dL (83-110); Triglycerides 58 mg/dL (Less than 150)
[2020-08-18 21:38] LABS: Anion Gap 18 mmol/L (10-20); Carbon Dioxide 23 mmol/L (23-31)
[2020-08-18 21:40] LABS: Calc. Creatinine Clearance 50 mL/min (70-130)
[2020-08-18 21:41] LABS: BUN (Urea Nitrogen) 18 mg/dL (9.8-20.1)
[2020-08-18 21:42] LABS: Cholesterol 198 mg/dl (< 200 Desired)
[2020-08-18 21:43] LABS: Cardiac Risk 3.6 (Less than 4.5); HDL Cholesterol 55 mg/dL (>60 Neg Risk); LDL Cholesterol, Calculated 131 mg/dL
[2020-08-19 04:59] LABS: Anion Gap 13 mmol/L (10-20); BUN (Urea Nitrogen) 21 mg/dL (9.8-20.1); Calc. Creatinine Clearance 52 mL/min (70-130); Calcium 8.6 mg/dL (7.8-10.44); Carbon Dioxide 23 mmol/L (23-31); Chloride 104 mmol/L (98-107); Glucose 82 mg/dL (83-110); Potassium 4.3 mmol/L (3.5-5.1); Sodium 136 mmol/L (136-145)
[2020-08-19 06:15] LABS: #Basophils 0.1 thou/uL (0.0-0.2); #Eosinphils 0.3 thou/uL (0.0-0.7); #Monocytes 0.7 thou/uL (0.11-0.59); #Neutrophils 4.4 thou/uL (1.40-6.50); %Eosinophils 4.3 % (0.0-10.0); %Lymphocytes 26.5 % (21.0-51.0); %Monocytes 9.6 % (0.0-10.0); %Neutrophils 58.7 % (42.0-75.0); Mean Corpuscular HGB CONC 31.9 g/dL (32.0-36.0); Mean Corpuscular Hemoglobin 30.2 pg (27.0-31.0); Mean Corpuscular Volume 94.9 fL (78.0-98.0); Platelet Count 343 thou/uL (130-400); RBC Distribution Width 11.1 % (11.5-14.5); Red Blood Cell (RBC) Count 3.98 mill/uL (4.20-5.40); White Blood Cell (WBC) Count 7.5 thou/uL (4.8-10.8)
[2020-08-19] MEDS: Pramipexole Di-HCl 0.25 MG TAB PO SCH ×3 (10:30→20:20)
[2020-08-19] MEDS: Prenatal Vitamin 1 TAB PO SCH (10:30)
[2020-08-19] MEDS: Escitalopram Oxalate 20 mg Tablet PO SCH (10:30)
[2020-08-19] MEDS: Trospium 20 MG TAB PO SCH ×2 (10:30→20:20)
[2020-08-19] MEDS: Aspirin 81 mg Enteric Coated Tablet PO SCH (10:30)
[2020-08-19] MEDS: Fluticasone Propionate Nasal Spray 16 gm Bottle NASAL SCH (10:31)
[2020-08-19] MEDS ORDERED: Dextromethorphan Polistirex 30 MG/5 ML (89 ML BOTTLE) PO PRN (10:40)
[2020-08-19] MEDS ORDERED: Carbamide Peroxide 6.5% Otic Drops 15 ml Bottle EA EAR SCH (21:00)
[2020-08-20] MEDS: Aspirin 81 mg Enteric Coated Tablet PO SCH (09:21)
[2020-08-20] MEDS: Prenatal Vitamin 1 TAB PO SCH (09:21)
[2020-08-20] MEDS: Pramipexole Di-HCl 0.25 MG TAB PO SCH ×3 (09:21→21:03)
[2020-08-20] MEDS: Escitalopram Oxalate 20 mg Tablet PO SCH (09:21)
[2020-08-20] MEDS: Fluticasone Propionate Nasal Spray 16 gm Bottle NASAL SCH (09:21)
[2020-08-20] MEDS: Trospium 20 MG TAB PO SCH ×2 (09:21→21:04)
[2020-08-21] MEDS: Aspirin 81 mg Enteric Coated Tablet PO SCH (09:50)
[2020-08-21] MEDS: Escitalopram Oxalate 20 mg Tablet PO SCH (09:50)
[2020-08-21] MEDS: Pramipexole Di-HCl 0.25 MG TAB PO SCH ×2 (09:50→14:44)
[2020-08-21] MEDS: Trospium 20 MG TAB PO SCH (09:50)
[2020-08-21] MEDS: Prenatal Vitamin 1 TAB PO SCH (09:50)
[2020-08-21] MEDS: Carbidopa/Levodopa 25-100 mg Tablet PO SCH ×3 (09:50→17:20)
[2020-08-21] MEDS: Entacapone 200 mg Tablet PO SCH ×3 (09:50→17:20)
[2020-08-21] MEDS: Fluticasone Propionate Nasal Spray 16 gm Bottle NASAL SCH (09:51)
[2020-08-21 16:16] VITALS: BP 115/61; TEMP 97.9
== END 2020-08-21 19:31 | DRG 69 ==
LOC: ERS 18:38 → 2SE 20:13
PROVIDERS: ADMIT Internal Medicine; ATTEND Internal Medicine
DX: G45.9 Transient cerebral ischemic attack, unspecified (principal); E44.0 Moderate protein-calorie malnutrition; Z68.1 Body mass index [BMI] 19.9 or less, adult; E87.1 Hypo-osmolality and hyponatremia; Z20.822 Contact with and (suspected) exposure to COVID-19; G20 Parkinson's disease; F02.80 Dementia in other diseases classified elsewhere, unspecified severity, without behavioral disturbance, psychotic disturbance, mood disturbance, and anxiety; E04.1 Nontoxic single thyroid nodule; I10 Essential (primary) hypertension; F41.9 Anxiety disorder, unspecified; F32.9 Major depressive disorder, single episode, unspecified; M81.0 Age-related osteoporosis without current pathological fracture; Z96.653 Presence of artificial knee joint, bilateral; Z28.21 Immunization not carried out because of patient refusal; Z79.899 Other long term (current) drug therapy; Z79.51 Long term (current) use of inhaled steroids
CPT/HCPCS: 36415; 36416; 51701; 70450; 70496; 70498; 80048; 80053; 80061; 81003; 82550; 84484; 85025; 85610; 85730; 87086; 87635; 93005; 93306; 95712; 95819; 95957; Q9967; U0003; U0005

== ENCOUNTER 2020-09-06 18:44 | Emergency (ER) | payer MEDICARE, BC ==
[2020-09-06 19:28] LABS: #Basophils 0.1 thou/uL (0.0-0.2); #Eosinphils 0.2 thou/uL (0.0-0.7); #Lymphocytes 2.1 thou/uL (1.20-3.40); #Monocytes 0.6 thou/uL (0.11-0.59); %Basophils 1.4 % (0.0-1.0); %Eosinophils 2.9 % (0.0-10.0); %Lymphocytes 35.7 % (21.0-51.0); %Monocytes 10.6 % (0.0-10.0); %Neutrophils 49.3 % (42.0-75.0); Hemoglobin 9.9 g/dL (12.0-16.0); Mean Corpuscular HGB CONC 33.1 g/dL (32.0-36.0); Mean Corpuscular Hemoglobin 31.8 pg (27.0-31.0); Mean Platelet Volume 7.2 fL (7.4-10.4); Platelet Count 206 thou/uL (130-400); RBC Distribution Width 11.8 % (11.5-14.5); Red Blood Cell (RBC) Count 3.13 mill/uL (4.20-5.40)
[2020-09-06 19:50] LABS: ALT (SGPT) Less than 7 U/L (8-55); AST (SGOT) 11 U/L (5-34); Albumin 2.9 g/dL (3.4-4.8); Alkaline Phosphatase 39 U/L (40-110); Anion Gap 12 mmol/L (10-20); BUN (Urea Nitrogen) 19 mg/dL (9.8-20.1); Bilirubin, Total 0.4 mg/dL (0.2-1.2); Calc. Creatinine Clearance 0 mL/min (70-130); Calcium 7.5 mg/dL (7.8-10.44); Carbon Dioxide 23 mmol/L (23-31); Chloride 108 mmol/L (98-107); Glucose 109 mg/dL (83-110); Potassium 3.7 mmol/L (3.5-5.1); Protein, Total 4.9 g/dL (5.8-8.1); Sodium 139 mmol/L (136-145)
[2020-09-06 19:58] LABS: Bilirubin Negative (Negative); Blood, Urine Negative (Negative); Clarity Clear (Clear); Glucose, Urine (Dipstick) Normal (Negative); Ketone, Urine Negative (Negative); Leukocyte Negative Leu/uL (Negative); Nitrite Negative (Negative); Protein, Urine (Dipstick) 10 mg/dL (Neg-Trace); Specific Gravity, Urine 1.017 (1.002-1.036); Urobilinogen Normal mg/dL (Less than 2); pH, Urine 6.5 (5.0-9.0)
== END 2020-09-06 22:30 ==
LOC: ERS 18:44
DX: R41.82 Altered mental status, unspecified (principal); E78.5 Hyperlipidemia, unspecified; I10 Essential (primary) hypertension; G20 Parkinson's disease; Z79.899 Other long term (current) drug therapy
CPT/HCPCS: 36415; 51701; 70450; 71045; 80053; 81003; 83605; 85025; 87040; 87086; 93005; 94760

== ENCOUNTER 2020-10-28 14:03 | Emergency (ER) | payer MEDICARE, BC ==
[2020-10-28 14:48] LABS: #Basophils 0.1 thou/uL (0.0-0.2); #Eosinphils 0.2 thou/uL (0.0-0.7); #Lymphocytes 2.1 thou/uL (1.20-3.40); #Monocytes 0.8 thou/uL (0.11-0.59); #Neutrophils 4.1 thou/uL (1.40-6.50); %Basophils 0.9 % (0.0-1.0); %Eosinophils 3.2 % (0.0-10.0); %Lymphocytes 28.9 % (21.0-51.0); %Monocytes 10.5 % (0.0-10.0); %Neutrophils 56.6 % (42.0-75.0); Hemoglobin 12.9 g/dL (12.0-16.0); Mean Corpuscular HGB CONC 34.4 g/dL (32.0-36.0); Mean Corpuscular Hemoglobin 32.5 pg (27.0-31.0); Mean Corpuscular Volume 94.5 fL (78.0-98.0); Mean Platelet Volume 6.9 fL (7.4-10.4); Platelet Count 237 thou/uL (130-400); RBC Distribution Width 11.6 % (11.5-14.5); Red Blood Cell (RBC) Count 3.98 mill/uL (4.20-5.40); White Blood Cell (WBC) Count 7.2 thou/uL (4.8-10.8)
[2020-10-28 15:19] LABS: ALT (SGPT) Less than 7 U/L (8-55); AST (SGOT) 12 U/L (5-34); Albumin 3.9 g/dL (3.4-4.8); Alkaline Phosphatase 53 U/L (40-110); Anion Gap 12 mmol/L (10-20); BUN (Urea Nitrogen) 19 mg/dL (9.8-20.1); Bilirubin, Total 0.4 mg/dL (0.2-1.2); Calc. Creatinine Clearance 0 mL/min (70-130); Calcium 9.2 mg/dL (7.8-10.44); Carbon Dioxide 27 mmol/L (23-31); Chloride 103 mmol/L (98-107); Globulin 2.6 g/dL (2.4-3.5); Glucose 92 mg/dL (83-110); Potassium 4.3 mmol/L (3.5-5.1); Protein, Total 6.5 g/dL (5.8-8.1); Sodium 138 mmol/L (136-145)
[2020-10-28 15:41] LABS: Bilirubin Negative (Negative); Blood, Urine Negative (Negative); Clarity Clear (Clear); Glucose, Urine (Dipstick) Normal (Negative); Ketone, Urine Negative (Negative); Leukocyte Negative Leu/uL (Negative); Nitrite Negative (Negative); Protein, Urine (Dipstick) Negative (Neg-Trace); Specific Gravity, Urine 1.013 (1.002-1.036); Urobilinogen Normal mg/dL (Less than 2)
== END 2020-10-28 17:17 | disposition home or self-care (01) ==
LOC: ERS 14:03
DX: S09.90XA Unspecified injury of head, initial encounter (principal); S80.212A Abrasion, left knee, initial encounter; G20 Parkinson's disease; M62.421 Contracture of muscle, right upper arm; M62.422 Contracture of muscle, left upper arm; M62.461 Contracture of muscle, right lower leg; M61.462 Other calcification of muscle, left lower leg; M19.90 Unspecified osteoarthritis, unspecified site; M41.9 Scoliosis, unspecified; E78.5 Hyperlipidemia, unspecified; I10 Essential (primary) hypertension; Z87.01 Personal history of pneumonia (recurrent); W05.0XXA Fall from non-moving wheelchair, initial encounter
CPT/HCPCS: 36415; 51701; 70450; 80053; 81003; 85025

== ENCOUNTER 2020-10-30 11:55 | Emergency (ER) | payer OTHER, MEDICARE, BC | END 2020-10-30 17:19 | LOC: ERS 11:55 | DX: S00.83XA Contusion of other part of head, initial encounter (principal); R26.9 Unspecified abnormalities of gait and mobility; M19.90 Unspecified osteoarthritis, unspecified site; M54.2 Cervicalgia; M41.9 Scoliosis, unspecified; E78.5 Hyperlipidemia, unspecified; I10 Essential (primary) hypertension; G20 Parkinson's disease; Z87.01 Personal history of pneumonia (recurrent); F02.80 Dementia in other diseases classified elsewhere, unspecified severity, without behavioral disturbance, psychotic disturbance, mood disturbance, and anxiety; W01.10XA Fall on same level from slipping, tripping and stumbling with subsequent striking against unspecified object, initial encounter | CPT/HCPCS: 70450; 72125 ==

== ENCOUNTER 2020-11-22 19:31 | Emergency (ER) | payer MEDICARE, BC ==
[2020-11-22 20:35] LABS: #Basophils 0.1 thou/uL (0.0-0.2); #Eosinphils 0.2 thou/uL (0.0-0.7); #Lymphocytes 1.8 thou/uL (1.20-3.40); #Monocytes 0.9 thou/uL (0.11-0.59); %Basophils 1.2 % (0.0-1.0); %Eosinophils 2.3 % (0.0-10.0); %Lymphocytes 19.6 % (21.0-51.0); %Monocytes 10.3 % (0.0-10.0); %Neutrophils 66.7 % (42.0-75.0); Hemoglobin 12.5 g/dL (12.0-16.0); Mean Corpuscular HGB CONC 33.2 g/dL (32.0-36.0); Mean Corpuscular Hemoglobin 31.8 pg (27.0-31.0); Mean Corpuscular Volume 95.7 fL (78.0-98.0); Mean Platelet Volume 6.9 fL (7.4-10.4); Platelet Count 247 thou/uL (130-400); RBC Distribution Width 11.8 % (11.5-14.5); Red Blood Cell (RBC) Count 3.93 mill/uL (4.20-5.40)
[2020-11-22 20:54] LABS: ALT (SGPT) Less than 7 U/L (8-55); AST (SGOT) 10 U/L (5-34); Albumin 3.9 g/dL (3.4-4.8); Alkaline Phosphatase 46 U/L (40-110); Anion Gap 16 mmol/L (10-20); BUN (Urea Nitrogen) 24 mg/dL (9.8-20.1); Bilirubin, Total 0.3 mg/dL (0.2-1.2); Calc. Creatinine Clearance 0 mL/min (70-130); Calcium 9.1 mg/dL (7.8-10.44); Carbon Dioxide 23 mmol/L (23-31); Chloride 107 mmol/L (98-107); Globulin 2.8 g/dL (2.4-3.5); Glucose 103 mg/dL (83-110); Potassium 4.2 mmol/L (3.5-5.1); Protein, Total 6.7 g/dL (5.8-8.1); Sodium 142 mmol/L (136-145)
[2020-11-22 21:13] LABS: INR-International Normal Ratio 0.9; PTT 27.9 sec (22.9-36.1); Prothrombin Time 12.4 sec (12.0-14.7)
== END 2020-11-22 22:27 | disposition home or self-care (01) ==
LOC: ERS 19:31
DX: S00.83XA Contusion of other part of head, initial encounter (principal); E78.2 Mixed hyperlipidemia; I10 Essential (primary) hypertension; G20 Parkinson's disease; F02.80 Dementia in other diseases classified elsewhere, unspecified severity, without behavioral disturbance, psychotic disturbance, mood disturbance, and anxiety; Z79.899 Other long term (current) drug therapy; W19.XXXA Unspecified fall, initial encounter
CPT/HCPCS: 36415; 70450; 72125; 80053; 85025; 85610; 85730; 93005

== ENCOUNTER 2021-03-15 19:55 | Emergency (ER) | payer OTHER, MEDICARE, BC | END 2021-03-15 22:51 | LOC: ERS 19:55 | DX: S09.90XA Unspecified injury of head, initial encounter (principal); E78.5 Hyperlipidemia, unspecified; I10 Essential (primary) hypertension; G20 Parkinson's disease; Z79.899 Other long term (current) drug therapy; W01.198A Fall on same level from slipping, tripping and stumbling with subsequent striking against other object, initial encounter | CPT/HCPCS: 70450 ==

== ENCOUNTER 2021-03-20 18:31 | Emergency (ER) | payer MEDICARE, BC ==
[2021-03-20 19:09] LABS: #Eosinphils 0.1 thou/uL (0.0-0.7); #Lymphocytes 1.9 thou/uL (1.20-3.40); #Monocytes 0.8 thou/uL (0.11-0.59); #Neutrophils 4.5 thou/uL (1.40-6.50); %Basophils 0.4 % (0.0-1.0); %Eosinophils 1.4 % (0.0-10.0); %Lymphocytes 26.1 % (21.0-51.0); %Monocytes 10.7 % (0.0-10.0); %Neutrophils 61.4 % (42.0-75.0); Hemoglobin 11.2 g/dL (12.0-16.0); Mean Corpuscular Hemoglobin 32.6 pg (27.0-31.0); Mean Corpuscular Volume 95.8 fL (78.0-98.0); Mean Platelet Volume 7.6 fL (7.4-10.4); Platelet Count 184 thou/uL (130-400); RBC Distribution Width 11.8 % (11.5-14.5); Red Blood Cell (RBC) Count 3.45 mill/uL (4.20-5.40); White Blood Cell (WBC) Count 7.3 thou/uL (4.8-10.8)
[2021-03-20 19:30] LABS: ALT (SGPT) Less than 7 U/L (8-55); AST (SGOT) 10 U/L (5-34); Albumin 3.4 g/dL (3.4-4.8); Alkaline Phosphatase 45 U/L (40-110); Anion Gap 9 mmol/L (10-20); BUN (Urea Nitrogen) 21 mg/dL (9.8-20.1); Bilirubin, Total 0.4 mg/dL (0.2-1.2); Calc. Creatinine Clearance 0 mL/min (70-130); Calcium 8.6 mg/dL (7.8-10.44); Carbon Dioxide 28 mmol/L (23-31); Chloride 104 mmol/L (98-107); Globulin 2.2 g/dL (2.4-3.5); Glucose 89 mg/dL (83-110); Potassium 4.8 mmol/L (3.5-5.1); Protein, Total 5.6 g/dL (5.8-8.1); Sodium 136 mmol/L (136-145)
[2021-03-20 21:59] LABS: Bilirubin Negative (Negative); Blood, Urine Negative (Negative); Clarity Clear (Clear); Glucose, Urine (Dipstick) Normal (Negative); Ketone, Urine Negative (Negative); Leukocyte Negative Leu/uL (Negative); Nitrite Negative (Negative); Protein, Urine (Dipstick) Negative (Neg-Trace); Specific Gravity, Urine 1.012 (1.002-1.036); Urobilinogen Normal mg/dL (Less than 2)
== END 2021-03-21 00:27 | disposition home or self-care (01) ==
LOC: ERS 18:31
DX: G20 Parkinson's disease (principal); F02.81 Dementia in other diseases classified elsewhere, unspecified severity, with behavioral disturbance; D64.9 Anemia, unspecified; M19.90 Unspecified osteoarthritis, unspecified site; E78.5 Hyperlipidemia, unspecified; I10 Essential (primary) hypertension; Z79.899 Other long term (current) drug therapy
CPT/HCPCS: 36415; 51701; 71045; 80053; 81003; 83605; 84484; 85025; 87040; 87086; 93005